=== PATIENT | female | born 1995 | race Caucasian/White ===

== ENCOUNTER 2024-05-11 15:57 | Emergency (ER) | payer OTHER ==
[~2024-05-11] VITALS: Ht 175.3 cm; Wt 62.6 kg
[2024-05-11 16:12] VITALS: O2SAT 100
[2024-05-11 16:42] LABS: CLARITY URINE CLOUDY (CLEAR); COLOR URINE YELLOW (YELLOW); GLUCOSE URINE NEGATIVE (NEGATIVE); KETONES URINE 4+ (NEGATIVE); LEUKOCYTE ESTERASE URINE TRACE (NEGATIVE); NITRITE URINE NEGATIVE (NEGATIVE); OCCULT BLOOD URINE 3+ (NEGATIVE); PH URINE >=9.0 (4.5-8.0); PROTEIN URINE 1+ (NEGATIVE); SPECIFIC GRAVITY URINE 1.023 (1.005-1.030)
[2024-05-11 16:56] LABS: HEMATOCRIT. 39.4 % (36.0-48.0); HEMOGLOBIN. 12.9 g/dL (12.0-16.0); MEAN CORPUSCULAR HEMOGLOBIN 31.9 pg (28.0-32.0); MEAN CORPUSCULAR HGB CONC 32.7 g/dL (31.0-37.0); MEAN CORPUSCULAR VOLUME 97.4 fL (81.0-99.0); MEAN PLATELET VOLUME 8.3 fl (7.4-10.4); PLATELET 343 x1000/uL (130-400); RED BLOOD CELL COUNT 4.04 mill/uL (4.2-5.4); RED CELL DISTRIBUTION WIDTH 13.4 % (11.6-14.6); WHITE BLOOD COUNT 13.6 x1000/uL (4.5-11.0)
[2024-05-11 16:58] LABS: CHLORIDE 110 mEq/L (98-107); POTASSIUM 3.7 mEq/L (3.5-5.1); SODIUM 140 mEq/L (136-145)
[2024-05-11 16:59] LABS: CALCIUM 9.7 mg/dL (8.7-10.4); CARBON DIOXIDE 23 mEq/L (21-32); DIFFERENTIAL COMMENT 1
[2024-05-11 17:02] LABS: BACTERIA URINE 2+; SQUAMOUS EPITHELIAL CELL URINE 2+ /lpf (RARE/1+)
[2024-05-11 17:04] LABS: CREATININE 0.8 mg/dL (0.6-1.0); GLUCOSE 136 mg/dL (70-105); UREA NITROGEN BLOOD 10 mg/dL (9-23)
[2024-05-11 17:06] LABS: ALANINE AMINOTRANSFERASE 22 IU/L (10-49); ALBUMIN 5.2 g/dL (3.2-4.8); ASPARTATE AMINOTRANSFERASE 23 IU/L (<34); BILIRUBIN DIRECT 0.3 mg/dL (<=3.0); BILIRUBIN TOTAL 1.1 mg/dL (0.1-1.0); HCG SCREEN NEGATIVE; PROTEIN TOTAL 7.6 g/dL (6.0-8.3)
[2024-05-11] MEDS: KETOROLAC 30MG/ML VIAL IV STA (17:07)
[2024-05-11] MEDS: ONDANSETRON HCL 4MG/2ML INJ IV STA (17:08)
[2024-05-11] MEDS: SODIUM CHLORIDE 0.9% 1,000 ML IV ONE (17:13)
[2024-05-11 17:39] LABS: PLATELET ESTIMATE NORMAL
[2024-05-11] MEDS: LORAZEPAM 2MG/ML INJ IV ONE (18:30)
[2024-05-11] MEDS: METOCLOPRAMIDE HCL 10MG/2ML VIAL IV ONE (19:46)
[2024-05-11] MEDS: MORPHINE SULFATE 4 MG/ML INJ (FOR IV/IM USE) IV STA (19:46)
[2024-05-11] MEDS ORDERED: SULF1TAB48 MT (20:05)
[2024-05-11 20:19] VITALS: BP 117/60; PULSE 70; RESP 16; TEMP 98.7
== END 2024-05-11 20:20 | disposition home or self-care (01) ==
LOC: ER 15:57
DX: R10.30 Lower abdominal pain, unspecified (principal); R11.2 Nausea with vomiting, unspecified; E86.0 Dehydration; Z88.0 Allergy status to penicillin
CPT/HCPCS: 80076; 80048; 81003; 81025; 84703; 83690; 85025; 36415; 76830; 76856; 96374; 96375; 99285; J1885; J2060; J2765; J2405; J2270; J7030; Z7610 ×2